=== PATIENT | female | born 1940 | race Caucasian/White ===

== ENCOUNTER 2021-08-12 17:39 | Inpatient (IN) | payer MEDICARE ==
[~2021-08-12] VITALS: Ht 157.5 cm; Wt 73.0 kg
[2021-08-12] MEDS ORDERED: ACET-2247 PO (20:13)
[2021-08-12] MEDS ORDERED: CYCL10TA16 PO (20:13)
[2021-08-12] MEDS ORDERED: ACETAMINOPHEN 500 MG TABLET PO ONE (22:00)
[2021-08-12] MEDS ORDERED: CYCLOBENZAPRINE HCL 10 MG TABLET PO ONE (22:00)
[2021-08-12] MEDS ORDERED: TRAMADOL HCL 50 MG TABLET PO ONE (22:00)
[2021-08-12] MEDS ORDERED: LUTEIN PO (22:28)
[2021-08-12] MEDS ORDERED: ASPI-1026 PO (22:28)
[2021-08-12] MEDS ORDERED: VITAMIN D 3 PO (22:28)
[2021-08-12] MEDS ORDERED: VITA-395 PO (22:28)
[2021-08-12] MEDS ORDERED: METO50TA9 PO (22:28)
[2021-08-12] MEDS ORDERED: ACETAMINOPHEN 325 MG TAB PO PRN (22:30)
[2021-08-12] MEDS ORDERED: ONDANSETRON 4MG INJ IV PRN (22:30)
[2021-08-13 01:30] VITALS: BP 159/62
[2021-08-13 03:32] VITALS: BP 152/62
[2021-08-13 03:55] LABS: BASOPHILS % (AUTO) 0.3 % (0.0-5.0); EOSINOPHILS % (AUTO) 0.8 % (0.0-8.0); HEMATOCRIT 37.4 % (36-48); LYMPHOCYTES % (AUTO) 7.4 % (21.0-51.0); MEAN CORPUSCULAR HEMOGLOBIN 27.1 pg (27.0-33.0); MEAN CORPUSCULAR HGB CONC 30.5 g/dL (32.0-36.0); MEAN CORPUSCULAR VOLUME 88.8 fL (79-99); MONOCYTES % (AUTO) 8.5 % (3.0-13.0); NEUTROPHILS % (AUTO) 82.5 % (40.0-77.0); PLATELET COUNT (AUTO) 380 K/uL (130-400); RED BLOOD CELL COUNT(AUTO) 4.21 MIL/uL (4.00-5.50); RED CELL DISTRIBUTION WIDTH 15.4 % (11.0-15.5); WHITE BLOOD COUNT (AUTO) 14.6 K/uL (4.8-10.8)
[2021-08-13 04:10] LABS: ALBUMIN 2.7 g/dL (3.5-5.0); BILIRUBIN,TOTAL 0.4 mg/dL (0.2-1.0); CREATININE 0.7 mg/dL (0.5-1.5); POTASSIUM 4.3 mmol/L (3.5-5.1); TOTAL PROTEIN, SERUM 6.5 g/dL (6.0-8.3)
[2021-08-13 07:45] VITALS: BP 152/78
[2021-08-13] MEDS: **HM** VIT D3 PO SCH (09:00)
[2021-08-13] MEDS: FAMOTIDINE 20MG TAB PO SCH ×2 (09:23→20:19)
[2021-08-13] MEDS: METOPROLOL SUCCINATE 50 MG TAB.SR.24H PO SCH (09:24)
[2021-08-13] MEDS: ASPIRIN 325MG TAB PO SCH (09:24)
[2021-08-13] MEDS: ACETAMINOPHEN 325 MG TAB PO PRN ×2 (09:25→23:51)
[2021-08-13] MEDS: ENOXAPARIN SODIUM 30 MG/0.3 ML SQ SCH (09:25)
[2021-08-13 16:04] VITALS: BP 153/45
[2021-08-13 20:25] VITALS: BP 155/53
[2021-08-14] VITALS (7 sets, daily range): BP systolic 112–162; BP diastolic 45–64
[2021-08-14 04:25] LABS: BASOPHILS % (AUTO) 0.2 % (0.0-5.0); EOSINOPHILS % (AUTO) 0.4 % (0.0-8.0); HEMATOCRIT 38.4 % (36-48); LYMPHOCYTES % (AUTO) 5.4 % (21.0-51.0); MEAN CORPUSCULAR HEMOGLOBIN 26.2 pg (27.0-33.0); MEAN CORPUSCULAR HGB CONC 29.2 g/dL (32.0-36.0); MEAN CORPUSCULAR VOLUME 89.9 fL (79-99); MONOCYTES % (AUTO) 8.3 % (3.0-13.0); NEUTROPHILS % (AUTO) 84.7 % (40.0-77.0); PLATELET COUNT (AUTO) 376 K/uL (130-400); RED BLOOD CELL COUNT(AUTO) 4.27 MIL/uL (4.00-5.50); RED CELL DISTRIBUTION WIDTH 15.1 % (11.0-15.5); WHITE BLOOD COUNT (AUTO) 15.6 K/uL (4.8-10.8)
[2021-08-14 04:41] LABS: ALBUMIN 2.5 g/dL (3.5-5.0); BILIRUBIN,TOTAL 0.4 mg/dL (0.2-1.0); CREATININE 0.7 mg/dL (0.5-1.5); POTASSIUM 4.4 mmol/L (3.5-5.1); TOTAL PROTEIN, SERUM 6.2 g/dL (6.0-8.3)
[2021-08-14] MEDS: ACETAMINOPHEN 325 MG TAB PO PRN ×2 (04:47→22:18)
[2021-08-14] MEDS: **HM** VIT D3 PO SCH (09:00)
[2021-08-14] MEDS: CALCITONIN 3.7 ML AEROSOL NS SCH (09:01)
[2021-08-14] MEDS: ASPIRIN 325MG TAB PO SCH (09:01)
[2021-08-14] MEDS: METOPROLOL SUCCINATE 50 MG TAB.SR.24H PO SCH (09:01)
[2021-08-14] MEDS: FAMOTIDINE 20MG TAB PO SCH ×2 (09:01→19:37)
[2021-08-14] MEDS: ENOXAPARIN SODIUM 30 MG/0.3 ML SQ SCH (09:02)
[2021-08-14 10:28] LABS: APPEARANCE,URINE Cloudy (CLEAR); BILIRUBIN,URINE Negative (NEGATIVE); COLOR,URINE Dark Yellow (YELLOW); GLUCOSE, URINE (UA) Negative (NEGATIVE); KETONES,URINE Negative (NEGATIVE); LEUKOCYTE ESTERASE ,URINE Trace (NEGATIVE); NITRATE,URINE Positive (NEGATIVE); OCCULT BLOOD,URINE Negative (NEGATIVE); PROTEIN,URINE Trace mg/dL (NEGATIVE)
[2021-08-14 10:31] LABS: BACTERIA,URINE Many /HPF (None Seen); RBC,URINE 0-1 /HPF (0-1)
[2021-08-14 10:32] LABS: SQUAMOUS EPITHELIAL CELL,UR Rare /HPF (0-2)
[2021-08-14] MEDS ORDERED: CLINDAMYCIN IVPB 300MG/50ML 50 ML IV SCH (12:00)
[2021-08-14] MEDS: KETOROLAC 15MG/ML VIAL (15MG/ML) IV PRN ×2 (14:19→22:29)
[2021-08-14 15:25] LABS: INR 1.05 (0.85-1.15); PROTHROMBIN TIME 11.4 SEC (9.6-11.6)
[2021-08-14] MEDS: LEVOFLOXACIN 750 MG/D5W 150 ML 150 ML IV SCH (19:10)
[2021-08-14 20:59] LABS: APPEARANCE BODY FLUID CLOUDY (CLEAR); SPECIMENTYPE,BODY FLUID PLEURAL
[2021-08-14 21:00] LABS: BODY FLUID WBC 3050 /cu. mm.; COLOR,BODY FLUID DARK YELLOW (LT YELLOW); TOTAL VOLUME,BODY FLUID 1400 mL
[2021-08-14 21:01] LABS: BODY FLUID RBC 2700 /cu. mm.
[2021-08-14 21:42] LABS: BF LYMPHOCYTE 93 %
[2021-08-14] MEDS ORDERED: IOHEXOL-350 75 ML VIAL IV ONE (23:55)
[2021-08-15 03:54] VITALS: BP 145/57
[2021-08-15] MEDS: KETOROLAC 15MG/ML VIAL (15MG/ML) IV PRN ×2 (04:27→20:14)
[2021-08-15 04:48] LABS: BASOPHILS % (AUTO) 0.2 % (0.0-5.0); EOSINOPHILS % (AUTO) 0.3 % (0.0-8.0); HEMATOCRIT 40.1 % (36-48); LYMPHOCYTES % (AUTO) 5.1 % (21.0-51.0); MEAN CORPUSCULAR HEMOGLOBIN 26.8 pg (27.0-33.0); MEAN CORPUSCULAR HGB CONC 29.9 g/dL (32.0-36.0); MEAN CORPUSCULAR VOLUME 89.7 fL (79-99); MONOCYTES % (AUTO) 7.1 % (3.0-13.0); NEUTROPHILS % (AUTO) 86.8 % (40.0-77.0); PLATELET COUNT (AUTO) 364 K/uL (130-400); RED BLOOD CELL COUNT(AUTO) 4.47 MIL/uL (4.00-5.50); RED CELL DISTRIBUTION WIDTH 14.9 % (11.0-15.5); WHITE BLOOD COUNT (AUTO) 15.1 K/uL (4.8-10.8)
[2021-08-15 05:06] LABS: ALBUMIN 2.3 g/dL (3.5-5.0); BILIRUBIN,TOTAL 0.4 mg/dL (0.2-1.0); CREATININE 0.6 mg/dL (0.5-1.5); POTASSIUM 4.6 mmol/L (3.5-5.1)
[2021-08-15 07:13] VITALS: BP 157/69
[2021-08-15] MEDS: **HM** VIT D3 PO SCH (09:00)
[2021-08-15] MEDS ORDERED: LEVOFLOXACIN 750 MG/D5W 150 ML 150 ML IV SCH (09:00)
[2021-08-15] MEDS: ASPIRIN 325MG TAB PO SCH (09:47)
[2021-08-15] MEDS: FAMOTIDINE 20MG TAB PO SCH ×2 (09:47→20:15)
[2021-08-15] MEDS: METOPROLOL SUCCINATE 50 MG TAB.SR.24H PO SCH (09:47)
[2021-08-15] MEDS: ENOXAPARIN SODIUM 30 MG/0.3 ML SQ SCH (09:49)
[2021-08-15] MEDS: CALCITONIN 3.7 ML AEROSOL NS SCH (09:53)
[2021-08-15 11:21] VITALS: BP 156/85
[2021-08-15 16:10] VITALS: BP 160/72
[2021-08-15] MEDS: LEVOFLOXACIN 750 MG/D5W 150 ML 150 ML IV SCH (16:16)
[2021-08-15] MEDS ORDERED: CLONIDINE HCL 0.1 MG TABLET PO PRN (17:00)
[2021-08-15 20:00] VITALS: BP 150/61
[2021-08-15] MEDS: GABAPENTIN 100 MG CAPSULE PO SCH (20:15)
[2021-08-16] VITALS: BP 159/64
[2021-08-16 04:00] VITALS: BP 122/55
[2021-08-16 04:26] LABS: HEMATOCRIT 38.4 % (36-48); MEAN CORPUSCULAR HEMOGLOBIN 26.2 pg (27.0-33.0); MEAN CORPUSCULAR HGB CONC 29.9 g/dL (32.0-36.0); MEAN CORPUSCULAR VOLUME 87.5 fL (79-99); RED BLOOD CELL COUNT(AUTO) 4.39 MIL/uL (4.00-5.50); RED CELL DISTRIBUTION WIDTH 14.7 % (11.0-15.5); WHITE BLOOD COUNT (AUTO) 12.8 K/uL (4.8-10.8)
[2021-08-16 04:41] LABS: CREATININE 0.5 mg/dL (0.5-1.5); POTASSIUM 4.4 mmol/L (3.5-5.1)
[2021-08-16 08:00] VITALS: BP 175/72
[2021-08-16] MEDS: **HM** VIT D3 PO SCH (09:00)
[2021-08-16] MEDS: ASPIRIN 325MG TAB PO SCH (09:09)
[2021-08-16] MEDS: METOPROLOL SUCCINATE 50 MG TAB.SR.24H PO SCH (09:09)
[2021-08-16] MEDS: GABAPENTIN 100 MG CAPSULE PO SCH ×3 (09:09→20:17)
[2021-08-16] MEDS: FAMOTIDINE 20MG TAB PO SCH ×2 (09:10→20:16)
[2021-08-16] MEDS: ENOXAPARIN SODIUM 30 MG/0.3 ML SQ SCH (09:11)
[2021-08-16] MEDS: CALCITONIN 3.7 ML AEROSOL NS SCH (09:13)
[2021-08-16] MEDS: KETOROLAC 15MG/ML VIAL (15MG/ML) IV PRN (10:25)
[2021-08-16 12:00] VITALS: BP 158/77
[2021-08-16 16:00] VITALS: BP 136/63
[2021-08-16] MEDS: LEVOFLOXACIN 750 MG/D5W 150 ML 150 ML IV SCH (17:30)
[2021-08-16 20:00] VITALS: BP 131/44
[2021-08-16] MEDS: ACETAMINOPHEN 325 MG TAB PO PRN (20:17)
[2021-08-17] VITALS (7 sets, daily range): BP systolic 142–170; BP diastolic 57–81
[2021-08-17 04:23] LABS: HEMATOCRIT 39.1 % (36-48); MEAN CORPUSCULAR HEMOGLOBIN 27.3 pg (27.0-33.0); MEAN CORPUSCULAR HGB CONC 30.7 g/dL (32.0-36.0); MEAN CORPUSCULAR VOLUME 89.1 fL (79-99); RED BLOOD CELL COUNT(AUTO) 4.39 MIL/uL (4.00-5.50); RED CELL DISTRIBUTION WIDTH 14.9 % (11.0-15.5); WHITE BLOOD COUNT (AUTO) 14.7 K/uL (4.8-10.8)
[2021-08-17 04:42] LABS: ALBUMIN 2.3 g/dL (3.5-5.0); CREATININE 0.6 mg/dL (0.5-1.5); POTASSIUM 4.3 mmol/L (3.5-5.1)
[2021-08-17] MEDS: KETOROLAC 15MG/ML VIAL (15MG/ML) IV PRN ×2 (06:46→21:34)
[2021-08-17] MEDS: ASPIRIN 325MG TAB PO SCH (09:00)
[2021-08-17] MEDS: CALCITONIN 3.7 ML AEROSOL NS SCH (09:00)
[2021-08-17] MEDS: **HM** VIT D3 PO SCH (09:00)
[2021-08-17] MEDS: ENOXAPARIN SODIUM 30 MG/0.3 ML SQ SCH (09:01)
[2021-08-17] MEDS: METOPROLOL SUCCINATE 50 MG TAB.SR.24H PO SCH (09:01)
[2021-08-17] MEDS: GABAPENTIN 100 MG CAPSULE PO SCH ×3 (09:01→21:30)
[2021-08-17] MEDS: FAMOTIDINE 20MG TAB PO SCH ×2 (09:01→21:30)
[2021-08-17] MEDS: LEVOFLOXACIN 750 MG/D5W 150 ML 150 ML IV SCH (16:55)
[2021-08-18] MEDS ORDERED: MORPHINE 2 MG SYG IM ONE (02:00)
[2021-08-18 04:29] VITALS: BP 172/82
[2021-08-18] MEDS: KETOROLAC 15MG/ML VIAL (15MG/ML) IV PRN (04:38)
[2021-08-18] MEDS: ACETAMINOPHEN 325 MG TAB PO PRN (07:18)
[2021-08-18] MEDS ORDERED: ONDANSETRON 4MG INJ IVP PRN (07:30)
[2021-08-18] MEDS ORDERED: MORPHINE 2 MG SYG IVP PRN (07:30)
[2021-08-18 08:00] VITALS: BP 156/78
[2021-08-18] MEDS: **HM** VIT D3 PO SCH (09:00)
[2021-08-18] MEDS: LIDOCAINE 5% TOPICAL PATCH TP SCH (09:25)
[2021-08-18] MEDS: METOPROLOL SUCCINATE 50 MG TAB.SR.24H PO SCH (09:29)
[2021-08-18] MEDS: ASPIRIN 325MG TAB PO SCH (09:29)
[2021-08-18] MEDS: GABAPENTIN 300 MG CAPSULE PO SCH ×3 (09:29→19:49)
[2021-08-18] MEDS: FAMOTIDINE 20MG TAB PO SCH ×2 (09:29→19:49)
[2021-08-18] MEDS ORDERED: KETOROLAC 30MG VIAL (30MG/ML) IV PRN (09:30)
[2021-08-18] MEDS: CALCITONIN 3.7 ML AEROSOL NS SCH (09:34)
[2021-08-18] MEDS: ENOXAPARIN SODIUM 30 MG/0.3 ML SQ SCH (09:43)
[2021-08-18 11:58] VITALS: BP 151/64
[2021-08-18 16:00] VITALS: BP 167/67
[2021-08-18] MEDS: LEVOFLOXACIN 750 MG/D5W 150 ML 150 ML IV SCH (17:25)
[2021-08-18 20:25] VITALS: BP 154/63
[2021-08-18 23:58] VITALS: BP 136/54
[2021-08-19] VITALS (39 sets, daily range): BP systolic 85–209; BP diastolic 31–86
[2021-08-19] MEDS: **HM** VIT D3 PO SCH (07:54)
[2021-08-19] MEDS: LIDOCAINE 5% TOPICAL PATCH TP SCH (08:00)
[2021-08-19] MEDS: METOPROLOL SUCCINATE 50 MG TAB.SR.24H PO SCH (08:00)
[2021-08-19] MEDS: GABAPENTIN 300 MG CAPSULE PO SCH ×3 (08:14→21:00)
[2021-08-19] MEDS: CALCITONIN 3.7 ML AEROSOL NS SCH (08:15)
[2021-08-19] MEDS: FAMOTIDINE 20MG TAB PO SCH ×2 (09:00→21:00)
[2021-08-19] MEDS: LUTEIN PO SCH (09:00)
[2021-08-19] MEDS: ASPIRIN 325MG TAB PO SCH (09:00)
[2021-08-19] MEDS: VITAMIN E 400 UNIT CAPSULE PO SCH (09:00)
[2021-08-19] MEDS ORDERED: AMLODIPINE 5 MG TAB PO ONE (09:30)
[2021-08-19] MEDS: AMLODIPINE 5 MG TAB PO SCH (09:30)
[2021-08-19] MEDS ORDERED: GUAIFENESIN-DM 200/20 MG 10 ML PO PRN (12:00)
[2021-08-19] MEDS: SOLU-MEDROL 40MG VIAL IVP SCH (12:00)
[2021-08-19] MEDS: IPRATROPIUM/ALBUTEROL SULFATE 3 ML SOLUTION IH SCH ×2 (13:06→22:19)
[2021-08-19] MEDS ORDERED: PROPOFOL 10 MG/ML 20ML VIAL IV ONE (14:01)
[2021-08-19] MEDS ORDERED: FENTANYL CITRATE PF 50 MCG/1 ML 2ML VIAL ONE (14:03)
[2021-08-19] MEDS ORDERED: MIDAZOLAM HCL 1 MG/ML 2ML VIAL ONE (14:03)
[2021-08-19] MEDS ORDERED: ROCURONIUM 10MG/1ML SYR 10 MG/ML ML ONE (14:03)
[2021-08-19] MEDS ORDERED: NEOSTIGMINE 5MG/5ML SYR IV ONE (14:04)
[2021-08-19] MEDS ORDERED: GLYCOPYRROLATE 1 MG/5 ML SYRINGE ONE (14:04)
[2021-08-19] MEDS ORDERED: LIDOCAINE HCL 400MG/20ML VIAL ONE (14:05)
[2021-08-19] MEDS ORDERED: DEXAMETHASONE SOD PHOSPHATE 10MG/ML 1ML VIAL ONE (14:05)
[2021-08-19] MEDS ORDERED: ATROPINE 1MG SYG IVP ONE (14:05)
[2021-08-19] MEDS ORDERED: ONDANSETRON 4MG INJ ONE (14:05)
[2021-08-19] MEDS ORDERED: LIDOCAINE HCL 1% 20 ML VIAL ONE (14:06)
[2021-08-19] MEDS ORDERED: EPINEPHRINE PF 1MG AMP ONE ×2 (15:17→15:24)
[2021-08-19] MEDS ORDERED: ESMOLOL HCL 10 MG/ML 10 ML VIAL ONE (15:31)
[2021-08-19] MEDS ORDERED: SUGAMMADEX SODIUM 200 MG/2 ML VIAL IV ONE (16:35)
[2021-08-19] MEDS ORDERED: FENTANYL 2500MCG+NS 250ML 250 ML IV ONE (17:37)
[2021-08-19] MEDS ORDERED: PROPOFOL 1000 MG/100 ML 100 ML IV ONE (17:37)
[2021-08-19] MEDS: LEVOFLOXACIN 750 MG/D5W 150 ML 150 ML IV SCH (17:52)
[2021-08-19] MEDS ORDERED: NOREPINEPHRIN 4MG/NS 250ML 250 ML IV ONE (17:57)
[2021-08-19] MEDS ORDERED: FENTANYL CITRATE PF 0.05 MG/ML 1,000 MCG in 0.9%NACL 100ML 100 ML IVPB SCH (18:00)
[2021-08-19] MEDS ORDERED: PROPOFOL 1000 MG/100 ML 100 ML IV SCH (18:00)
[2021-08-19] MEDS ORDERED: NOREPINEPHRIN 4MG/NS 250ML 250 ML IV PRN (18:30)
[2021-08-19] MEDS ORDERED: FENTANYL CITRATE PF 0.05 MG/ML 2,500 MCG in 0.9% NACL 250ML 200 ML IVPB PRN (18:30)
[2021-08-19] MEDS ORDERED: PROPOFOL 1000 MG/100 ML 100 ML IV PRN (18:30)
[2021-08-19 19:52] LABS: ABG BASE EXCESS 5.6 mmol/L (-2.0-3.0); ABG HCO3 26.2 mmol/L (21.0-28.0); ABG OXYGEN SATURATION 99.9 % (95.0-99.0); ABG PCO2 27 mmHg (32-45)
[2021-08-20] VITALS (34 sets, daily range): BP systolic 92–142; BP diastolic 45–74
[2021-08-20] MEDS: IPRATROPIUM/ALBUTEROL SULFATE 3 ML SOLUTION IH SCH ×4 (00:27→23:59)
[2021-08-20 03:30] LABS: BASOPHILS % (AUTO) 0.2 % (0.0-5.0); HEMATOCRIT 35.8 % (36-48); LYMPHOCYTES % (AUTO) 4.6 % (21.0-51.0); MEAN CORPUSCULAR HEMOGLOBIN 26.8 pg (27.0-33.0); MEAN CORPUSCULAR HGB CONC 31.3 g/dL (32.0-36.0); MEAN CORPUSCULAR VOLUME 85.6 fL (79-99); MONOCYTES % (AUTO) 7.3 % (3.0-13.0); NEUTROPHILS % (AUTO) 87.2 % (40.0-77.0); PLATELET COUNT (AUTO) 331 K/uL (130-400); RED BLOOD CELL COUNT(AUTO) 4.18 MIL/uL (4.00-5.50); WHITE BLOOD COUNT (AUTO) 12.9 K/uL (4.8-10.8)
[2021-08-20 03:52] LABS: ALBUMIN 2.3 g/dL (3.5-5.0); BILIRUBIN,TOTAL 0.3 mg/dL (0.2-1.0); CREATININE 0.8 mg/dL (0.5-1.5); MAGNESIUM 1.8 mg/dL (1.80-2.40); PHOSPHORUS 3.6 mg/dL (2.5-4.9); POTASSIUM 4.6 mmol/L (3.5-5.1); TOTAL PROTEIN, SERUM 5.9 g/dL (6.0-8.3)
[2021-08-20 07:15] LABS: ABG BASE EXCESS 4.1 mmol/L (-2.0-3.0); ABG HCO3 25.7 mmol/L (21.0-28.0); ABG OXYGEN SATURATION 99.7 % (95.0-99.0); ABG PCO2 30 mmHg (32-45)
[2021-08-20] MEDS: SOLU-MEDROL 40MG VIAL IVP SCH (07:28)
[2021-08-20] MEDS: **HM** VIT D3 PO SCH (09:00)
[2021-08-20] MEDS: PREDNISONE 20 MG TABLET PO SCH (09:00)
[2021-08-20] MEDS: CALCITONIN 3.7 ML AEROSOL NS SCH (09:00)
[2021-08-20] MEDS: LUTEIN PO SCH (09:00)
[2021-08-20] MEDS: VITAMIN E 400 UNIT CAPSULE PO SCH (09:00)
[2021-08-20] MEDS ORDERED: ENOXAPARIN SODIUM 1 MG/KG SQ SCH (09:00)
[2021-08-20] MEDS: AMLODIPINE 5 MG TAB PO SCH (09:00)
[2021-08-20] MEDS: GABAPENTIN 300 MG CAPSULE PO SCH ×3 (09:00→20:06)
[2021-08-20] MEDS: FAMOTIDINE 20MG TAB PO SCH ×2 (09:00→20:06)
[2021-08-20] MEDS: METOPROLOL SUCCINATE 50 MG TAB.SR.24H PO SCH (09:00)
[2021-08-20] MEDS: ASPIRIN 325MG TAB PO SCH (09:00)
[2021-08-20] MEDS: ENOXAPARIN SODIUM 80 MG/0.8 ML SQ SCH (09:44)
[2021-08-20] MEDS: LIDOCAINE 5% TOPICAL PATCH TP SCH (09:44)
[2021-08-20] MEDS ORDERED: DEXMEDETOMIDINE 400MCG/NS100ML IV ONE (09:54)
[2021-08-20] MEDS ORDERED: DEXMEDETOMIDINE HCL 400 MCG in 0.9%NACL 100ML 96 ML IV PRN (10:30)
[2021-08-20] MEDS ORDERED: FENTANYL 2500MCG+NS 250ML 250 ML IV SCH (11:00)
[2021-08-20] MEDS ORDERED: DEXMEDETOMIDINE 400MCG/NS100ML IV SCH (11:00)
[2021-08-20] MEDS: LEVOFLOXACIN 750 MG/D5W 150 ML 150 ML IV SCH (17:59)
[2021-08-21 00:11] VITALS: BP 124/53
[2021-08-21] MEDS: KETOROLAC 10 MG TABLET PO PRN ×2 (01:33→09:21)
[2021-08-21 03:43] LABS: BASOPHILS % (AUTO) 0.2 % (0.0-5.0); EOSINOPHILS % (AUTO) 0.6 % (0.0-8.0); HEMATOCRIT 35.2 % (36-48); LYMPHOCYTES % (AUTO) 5.6 % (21.0-51.0); MEAN CORPUSCULAR HEMOGLOBIN 26.1 pg (27.0-33.0); MONOCYTES % (AUTO) 9.7 % (3.0-13.0); NEUTROPHILS % (AUTO) 83.1 % (40.0-77.0); PLATELET COUNT (AUTO) 290 K/uL (130-400); RED BLOOD CELL COUNT(AUTO) 3.91 MIL/uL (4.00-5.50); RED CELL DISTRIBUTION WIDTH 15.3 % (11.0-15.5); WHITE BLOOD COUNT (AUTO) 17.6 K/uL (4.8-10.8)
[2021-08-21 03:46] VITALS: BP 126/51
[2021-08-21 04:02] LABS: ALBUMIN 2.2 g/dL (3.5-5.0); BILIRUBIN,TOTAL 0.5 mg/dL (0.2-1.0); CREATININE 0.7 mg/dL (0.5-1.5); MAGNESIUM 2.1 mg/dL (1.80-2.40); PHOSPHORUS 5.3 mg/dL (2.5-4.9); TOTAL PROTEIN, SERUM 5.7 g/dL (6.0-8.3)
[2021-08-21] MEDS ORDERED: METOPROLOL TARTRATE 25 MG TAB PO SCH (05:30)
[2021-08-21] MEDS: IPRATROPIUM/ALBUTEROL SULFATE 3 ML SOLUTION IH SCH ×2 (06:37→10:56)
[2021-08-21 07:45] VITALS: BP 108/53
[2021-08-21] MEDS: LUTEIN PO SCH (09:00)
[2021-08-21] MEDS: **HM** VIT D3 PO SCH (09:00)
[2021-08-21] MEDS: AMLODIPINE 5 MG TAB PO SCH (09:00)
[2021-08-21] MEDS: PREDNISONE 20 MG TABLET PO SCH ×2 (09:00→09:25)
[2021-08-21] MEDS: GABAPENTIN 300 MG CAPSULE PO SCH ×3 (09:23→21:36)
[2021-08-21] MEDS: VITAMIN E 400 UNIT CAPSULE PO SCH (09:24)
[2021-08-21] MEDS: ASPIRIN 325MG EC TAB PO SCH (09:24)
[2021-08-21] MEDS: FAMOTIDINE 20MG TAB PO SCH ×2 (09:26→21:34)
[2021-08-21] MEDS: CALCITONIN 3.7 ML AEROSOL NS SCH (09:27)
[2021-08-21] MEDS: ENOXAPARIN SODIUM 80 MG/0.8 ML SQ SCH (09:28)
[2021-08-21] MEDS: LIDOCAINE 5% TOPICAL PATCH TP SCH (09:28)
[2021-08-21] MEDS: METOPROLOL SUCCINATE 50 MG TAB.SR.24H PO SCH (10:38)
[2021-08-21] MEDS: SOLU-MEDROL 40MG VIAL IVP SCH (11:05)
[2021-08-21 11:35] VITALS: BP 110/58
[2021-08-21] MEDS: METRONIDAZOLE 500MG/100ML BAG 100 ML IVPB SCH ×2 (14:31→21:36)
[2021-08-21 17:04] VITALS: BP 121/38
[2021-08-21] MEDS: LEVOFLOXACIN 750 MG/D5W 150 ML 150 ML IV SCH (17:17)
[2021-08-21] MEDS: IPRATROPIUM 0.5 MG/2.5 ML INH IH SCH ×2 (18:25→23:03)
[2021-08-21 19:45] VITALS: BP 148/65
[2021-08-22 00:24] VITALS: BP 161/79
[2021-08-22 03:56] LABS: HEMATOCRIT 36.1 % (36-48); MEAN CORPUSCULAR HEMOGLOBIN 26.6 pg (27.0-33.0); MEAN CORPUSCULAR HGB CONC 29.6 g/dL (32.0-36.0); MEAN CORPUSCULAR VOLUME 89.6 fL (79-99); PLATELET COUNT (AUTO) 279 K/uL (130-400); RED BLOOD CELL COUNT(AUTO) 4.03 MIL/uL (4.00-5.50); RED CELL DISTRIBUTION WIDTH 14.6 % (11.0-15.5); WHITE BLOOD COUNT (AUTO) 13.4 K/uL (4.8-10.8)
[2021-08-22 04:09] LABS: CREATININE 0.6 mg/dL (0.5-1.5); MAGNESIUM 2.2 mg/dL (1.80-2.40); POTASSIUM 4.7 mmol/L (3.5-5.1)
[2021-08-22 04:19] LABS: PLATELET MORPHOLOGY PLT CLUMPS PRESENT
[2021-08-22 04:40] VITALS: BP 146/51
[2021-08-22] MEDS: METRONIDAZOLE 500MG/100ML BAG 100 ML IVPB SCH ×2 (05:30→14:41)
[2021-08-22] MEDS: IPRATROPIUM 0.5 MG/2.5 ML INH IH SCH ×3 (07:36→18:28)
[2021-08-22 08:00] VITALS: BP 144/63
[2021-08-22] MEDS: AMLODIPINE 5 MG TAB PO SCH (09:00)
[2021-08-22] MEDS: METOPROLOL SUCCINATE 50 MG TAB.SR.24H PO SCH (09:00)
[2021-08-22] MEDS: ASPIRIN 325MG EC TAB PO SCH (09:00)
[2021-08-22] MEDS: LUTEIN PO SCH (09:00)
[2021-08-22] MEDS: PREDNISONE 20 MG TABLET PO SCH ×2 (09:00→10:33)
[2021-08-22] MEDS: VITAMIN E 400 UNIT CAPSULE PO SCH (09:00)
[2021-08-22] MEDS: **HM** VIT D3 PO SCH (09:00)
[2021-08-22] MEDS: GABAPENTIN 300 MG CAPSULE PO SCH ×3 (10:33→20:32)
[2021-08-22] MEDS: FAMOTIDINE 20MG TAB PO SCH ×2 (10:33→20:32)
[2021-08-22] MEDS: LIDOCAINE 5% TOPICAL PATCH TP SCH (10:33)
[2021-08-22] MEDS: CALCITONIN 3.7 ML AEROSOL NS SCH (10:34)
[2021-08-22] MEDS: ENOXAPARIN SODIUM 80 MG/0.8 ML SQ SCH (10:35)
[2021-08-22 12:00] VITALS: BP 151/63
[2021-08-22] MEDS: SOLU-MEDROL 40MG VIAL IVP SCH (12:00)
[2021-08-22 16:00] VITALS: BP 147/86
[2021-08-22] MEDS: LEVOFLOXACIN 750 MG/D5W 150 ML 150 ML IV SCH (17:25)
[2021-08-22] MEDS: KETOROLAC 10 MG TABLET PO PRN (20:32)
== END 2021-08-22 21:59 | DRG 208 ==
LOC: EDH 17:39 → EDHIP 21:39 → INTOOBSV 21:39 → OBSVTOIN 21:39 → UNDOADMOB 21:39 → OBSVTOIN 22:28 → EDHIP 22:28 → 4BH 08-13 01:22 → 2CH 08-19 17:40 → 4AH 08-20 23:45
PROVIDERS: ADMIT Hospitalist; ATTEND Hospitalist
PROC: 0W9B3ZZ Drainage of Left Pleural Cavity, Percutaneous Approach (ICD-10-PCS; 2021-08-14)
PROC: 0BD78ZX Extraction of Left Main Bronchus, Via Natural or Artificial Opening Endoscopic, Diagnostic (ICD-10-PCS; principal; 2021-08-19)
PROC: 0BDG8ZX Extraction of Left Upper Lung Lobe, Via Natural or Artificial Opening Endoscopic, Diagnostic (ICD-10-PCS; 2021-08-19)
PROC: 0WHB33Z Insertion of Infusion Device into Left Pleural Cavity, Percutaneous Approach (ICD-10-PCS; 2021-08-19)
PROC: 0B5G8ZZ Destruction of Left Upper Lung Lobe, Via Natural or Artificial Opening Endoscopic (ICD-10-PCS; 2021-08-19)
PROC: 5A1935Z Respiratory Ventilation, Less than 24 Consecutive Hours (ICD-10-PCS; 2021-08-19)
PROC: 0BH17EZ Insertion of Endotracheal Airway into Trachea, Via Natural or Artificial Opening (ICD-10-PCS; 2021-08-19)
PROC: 5A09357 Assistance with Respiratory Ventilation, Less than 24 Consecutive Hours, Continuous Positive Airway Pressure (ICD-10-PCS; 2021-08-20)
DX: C78.02 Secondary malignant neoplasm of left lung (principal); J96.01 Acute respiratory failure with hypoxia; J91.0 Malignant pleural effusion; S32.049A Unspecified fracture of fourth lumbar vertebra, initial encounter for closed fracture; N39.0 Urinary tract infection, site not specified; D68.61 Antiphospholipid syndrome; J98.11 Atelectasis; S32.059A Unspecified fracture of fifth lumbar vertebra, initial encounter for closed fracture; F17.210 Nicotine dependence, cigarettes, uncomplicated; I10 Essential (primary) hypertension; R91.8 Other nonspecific abnormal finding of lung field; Z88.0 Allergy status to penicillin; Z88.5 Allergy status to narcotic agent; W18.39XA Other fall on same level, initial encounter; Y93.89 Activity, other specified; Y92.89 Other specified places as the place of occurrence of the external cause; Y99.8 Other external cause status; M81.0 Age-related osteoporosis without current pathological fracture; J44.9 Chronic obstructive pulmonary disease, unspecified; E27.8 Other specified disorders of adrenal gland; R62.7 Adult failure to thrive; D64.9 Anemia, unspecified; I48.91 Unspecified atrial fibrillation; Z68.29 Body mass index [BMI] 29.0-29.9, adult
CPT/HCPCS: 31624; 31625; 31641; 36415; 36600; 70450; 71045; 71260; 72131; 73502; 73552; 80048; 80053; 81001; 82040; 82550; 82803; 82945; 82948; 83615; 83735; 83874; 83986; 84100; 84157; 84484; 85025; 85027; 85610; 87071; 87077; 87088; 87116; 87186; 87205; 87206; 89051; 93005; 94002; 94003; 94640; 94664; 94760; 97039; A4606; G0378; G9654; J0171; J0461; J1100; J1650; J1885; J1956; J2250; J2405; J2704; J2710; J3010; J3490; Q9967